=== PATIENT | female | born 1960 | race Caucasian/White ===

== ENCOUNTER → 2019-09-11 13:44 | Outpatient (CLI) | payer OTHER, SELFPAY ==
--- NOTE | 2019-09-11 13:50 | ECHOD_ITS ---
Reason For Study: ABN CHEST XRAY Procedure This was a 2D Doppler, Color Flow transthoracic echocardiogram. Exam performed in department. Left Ventricle Normal LV size. Left ventricular systolic function is normal. The estimated ejection fraction is 60 %. Stage 1 diastolic dysfunction. No regional wall motion abnormalities noted. Right Ventricle Normal RV size. Normal systolic function. Atria Normal left atrium. Normal right atrium. Mitral Valve Bileaflet diffuse mitral valve thickening. Mild (1+) eccentric mitral valve insufficiency. Tricuspid Valve Normal tricuspid valve. Mild (1+) tricuspid valve insufficiency. Pulmonary artery systolic pressure is 26 mmHg. Aortic Valve Trisinus/trileaflet aortic valve. Pulmonic Valve Normal pulmonic valve. Great Vessels Mildly dilated aortic root. The pulmonary artery is normal size. Inferior vena cava collapse with respiration. Pericardium/Pleural No pericardial effusion. MMode/2D Measurements & Calculations LVIDd: 4.3 cm IVSd: 0.91 cm Ao root diam: 3.7 cm LVIDs: 2.9 cm LVPWd: 0.84 cm RVDd: 3.1 cm FS: 33.0 % LAV(MOD-bp): 45.2 ml EDV(MOD-sp4): 82.9 ml EDV(MOD-sp2): 94.1 ml LAV(MOD-bp) Indexed: 28.6 ml/m2 ESV(MOD-sp4): 36.5 ml EF(MOD-sp2): 54.5 % LAV(MOD-sp2): 41.2 ml EF(MOD-sp4): 56.0 % LAV(MOD-sp4): 47.4 ml SV(MOD-sp4): 46.4 ml SV(MOD-sp2): 51.3 ml LA A4 area: 16.8 cm2 LA dimension(2D): 3.0 cm RA A4 area: 14.0 cm2 Time Measurements MV dec time: 0.22 sec Doppler Measurements & Calculations MV E max tay: 85.4 cm/sec Lat Peak E' Tay: 5.9 cm/sec Med Peak E' Tay: 6.8 cm/sec MV A max tay: 102.7 cm/sec E/E' lat: 14.5 E/E' med: 12.5 MV E/A: 0.83 Ao V2 max: 141.3 cm/sec LV V1 max: 119.3 cm/sec PA V2 max: 84.6 cm/sec Ao max P.0 mmHg LV V1 max P.7 mmHg TR max tay: 242.5 cm/sec TR max P.5 mmHg Interpretation Summary Normal LV size. Left ventricular systolic function is normal. The estimated ejection fraction is 60 %. Stage 1 diastolic dysfunction. Mildly dilated aortic root. Ordering Physician: Ravi Bee Referring Physician: Ravi Bee Performed By: Melissa Jeter, FRANCO, RVT
== END ==
PROVIDERS: PCP Nurse Practitioner Family; Referring Provider Nurse Practitioner Family; Visit Provider Nurse Practitioner Family
DX: R93.89 Abnormal findings on diagnostic imaging of other specified body structures (principal)
CPT/HCPCS: 93306

== ENCOUNTER 2020-06-03 05:29 | Day surgery (SDC) | payer OTHER, SELFPAY ==
--- NOTE | 2020-05-20 13:06 | EKG12_ITS ---
Test Reason : PREOP Blood Pressure : / mmHG Vent. Rate : 078 BPM Atrial Rate : 078 BPM P-R Int : 124 ms QRS Dur : 076 ms QT Int : 374 ms P-R-T Axes : 048 062 023 degrees QTc Int : 426 ms Normal sinus rhythm Left ventricular hypertrophy Nonspecific ST abnormality Abnormal ECG Confirmed by LAURA KAISER, NICHOLAS ([id number]), photo editor JOSE BATISTA ([id number]) on 05/20/2020 2:31:38 PM Referred By: Niles Conner Confirmed By:NICHOLAS SANCHZE MD
[2020-05-20 15:10] LABS: Hemoglobin 12.9 g/dL (12.0-15.0); Mean Corp Hgb Conc 30.7 g/dL (32-36); Mean Corpuscular Hgb 28.3 pg (27.0-32.0); Mean Corpuscular Volume 92.1 fL (81-99); Mean Platelet Vol. 10.2 fl (6.2-12.0); Platelet Count 405 K/mm3 (150-450); RBC Distribution Width CV 15.1 % (11.6-14.6); RBC Distribution Width SD 51.8 fl (35.1-43.9); Red Blood Count 4.56 M/mm3 (4.2-5.4); White Blood Count 7.4 K/mm3 (4.4-11.0)
[2020-05-20 15:49] LABS: Anion Gap 4 (5-15); BUN 15 mg/dL (7-18); BUN/Creat Ratio 20.4 RATIO (10-20); Calcium,Total 9.3 mg/dL (8.5-10.1); Chloride 104 mmol/L (98-107); Creatinine, Serum 0.74 mg/dL (0.55-1.02); EST Glomerular Filtration Rate 85 mL/min (>60); Est Glom Filt Rate - Afr Amer 103 mL/min (>60); Glucose 92 mg/dL (74-106); Potassium 3.8 mmol/L (3.5-5.1); Sodium Level 138 mmol/L (136-145)
[2020-05-20 15:56] LABS: AST(SGOT) 18 U/L (15-37); Alanine Aminotransfer ALT/SGPT 19 U/L (13-56); Albumin, Serum 3.2 g/dL (3.2-5.0); Alkaline Phosphatase 85 U/L (45-117); Globulin 4.7 g/dL (2.2-4.2); Magnesium 2.4 mg/dL (1.6-2.6); Protein, Total 7.9 g/dL (6.4-8.2)
[2020-05-20 16:13] LABS: International Normalized Ratio 0.9; Prothrombin Time (Protime)PT. 11.8 SECONDS (11.7-14.9)
[2020-05-20 16:14] LABS: Partial Thromboplast Time 25.9 Seconds (24.1-36.2)
[2020-06-03] VITALS (20 sets, daily range): BP systolic 112–155; BP diastolic 72–99; PULSE 58–82; RESP 14–16; TEMP 36.3–37.3; O2SAT 95–100; BMI 18.1
--- NOTE | 2020-06-03 | HIP_PTH ---
PATIENT: RENETTA DAMIAN LOC: [facility] [place] U#:[id number] AGE/SX: 59/F ROOM: RE06/03/[address]: Dr. Niles Conner MD : 1960 BED: DIS: 06/03/2020 SPEC #: [id number] RECD: 06/03/20 10:43 STATUS: DARLENE RENic #: [id number] ENRIQUE: 06/03/20 00:[address]: Niles Conner DEPT: SURGICAL PATHOLOGY RECD BY: Austin Adame ENTERED: 06/03/20 10:43 SP TYPE: TOTAL HIP OTHR DR: Ravi Bee, HEALTHCARE EDUCATOR-C Tissues: Hip, NOS Procedures: Decalcification bone/plaque Surgery Specimen Level IV HEADER OPERATION: ERAS, total hip replacement PRE-OP DIAGNOSIS: Right hip severe osteoarthritis TISSUE SUBMITTED: Right femoral head MICROSCOPIC DIAGNOSIS Bone and soft tissue of right hip, total hip resection: Mild synovial hyperplasia and associated mild chronic inflammation. Bone with severe degenerative joint disease. AM:pao 06/06/2020 MICROSCOPIC DESCRIPTION Slides are reviewed. GROSS DESCRIPTION Received is one container labeled with the patient's name and designated femoral head. The specimen consists of a brian femoral head (with portion of femoral neck). The femoral head measures 4.5 x 4.5 x 4.5 cm and portion of attached femoral neck measures up to 2 cm in length. Also present attached to the femoral head are pieces of soft tissue measuring in aggregate 4 x 4 x 0.6 cm. The articular surface displays prominent osteophyte formation, eburnation and bone erosion. Security Expert sections are submitted in two cassettes as follows: 1 - soft tissue, 2 - bone after decalcification. / SJ:pao 06/03/2020 TC:5 [facility]: [id number]
[2020-06-03] MEDS: Celecoxib 200 MG Capsule 400 MG PO (06:29)
[2020-06-03] MEDS: Scopolamine 1mg/72hr Patch 1 PATCH TD (06:30)
[2020-06-03] MEDS: Gabapentin 600 MG Tablet PO (06:30)
[2020-06-03] MEDS: Acetaminophen 500 MG Tablet 1000 MG PO ×2 (06:30→15:14)
[2020-06-03] MEDS: Lactated Ringers 1,000 ML 100 ML IV ×2 (06:33→11:25)
--- NOTE | 2020-06-03 07:12 | RAD_ITS ---
STUDY: X-RAY - PELVIS AND RIGHT HIP REASON FOR EXAM: Female, 59 years old. post op YOSSI -- in PACU TECHNIQUE: 2 views of the pelvis and hip. COMPARISON: None. FINDINGS: Status post right hip arthroplasty. Surgical hardware intact/well aligned. No acute complications. Moderate left hip osteoarthritis. Postoperative soft tissues with staple line. RAD/Hip Min 2 Views (Portable) IMPRESSION: Uncomplicated right hip arthroplasty Moderate left hip osteoarthritis Electronically Signed: Chinmay Dawson DO at 9:51 EDT Tel , Service support ,
[2020-06-03] MEDS: Cefazolin 2 GM in 0.9% Normal Saline 100 ML IV (07:32)
[2020-06-03 07:45] LABS: Bedside Glucose 59 mg/dL (70-110)
[2020-06-03] MEDS: dexAMETHasone 10 MG/ML Vial IV (07:47)
--- NOTE | 2020-06-03 08:46 | PCM.OP.PRO ---
Procedure Report Date of Procedure: 06/03/20 Preoperative diagnosis: [Right] hip primary osteoarthritis Postoperative diagnosis: Same Operation: [Right] total hip replacement surgery Surgeon: Dr. Niles Conner MD Knowledge Architect: JUAN Hernandez assistant construction superintendent Anesthesia: Spinal/LMA Anesthesiologist Dr. Cobos Complications: None EBL 200 Special medications: IV [Ancef], IV Tranexamic acid Indications for surgery : Patient is a [ 59]-year-old female with a long-standing history of [right] severe hip pain that has failed adequate nonoperative treatment. Due to persistent pain and disability, they decided to proceed with hip replacement surgery. Appropriate informed consent was obtained and signed. Appropriate medical workup was performed preoperatively and patient was deemed safe for surgery by the anesthesia department as well. clinical trial assistant, physician assistant construction superintendent, was utilized throughout the entire procedure. They were vital in helping with patient positioning, holding of retractors, exposing the tissues adequately for safe completion of the procedure including cutting of the bone, helping dust mill operator appropriate alignment and sizing of the components, implantation of the components, as well as wound closure, bandage application, and safe patient transfer. Without regional vice president surgical sales, physician assistant construction superintendent, surgical time would have been significantly increased, and surgical outcome would have been less optimal. Operative findings: Patient had severe arthritis of the involved hip joint. They underwent a small posterior approach to the hip. We utilized a size [6 press-fit Accolade 2 stem] 127 degree neck angle, a press fit acetabular component size 48 titanium cluster, Trident X3 polyethylene liner with a 36 mm inner diameter, a Biolox ceramic femoral head size [36] with a +5 neck length. This reproduced their anatomy nicely. Clinically good leg lengths were noted. Good hip stability through range of motion with no undue pistoning. Standard wound closure in layers, followed by svitlana, followed by Mepilex dressing Details of procedure: Patient was taken to the operating room and transferred to the operating table. Given appropriate anesthetic agent by that department. Patient was then rolled into a lateral decubitus position with the involved painful hip up in the air. Appropriate timeouts had been performed. Hip had been appropriately marked with my initials. Padded anterior and posterior position was utilized. Axillary roll placed. TIFFANI hose and SCDs on the nonoperative limb utilized throughout the procedure. Tranexamic acid and IV antibiotics given preoperatively. Operative lower extremity was prepped padded and draped in the usual orthopedic sterile fashion for the procedure. I injected the pain relieving solution in the standard sterile technique of the soft tissues of the hip carefully. Incision was made curving over the tip of the greater trochanter posteriorly. Full thickness skin flaps are raised down on the fascia eugenia. Fascia eugenia was opened in length with our incision. Charnley self-retaining hip retractor was carefully placed by the surgeon. Leg was appropriately rotated and held by the assistant construction superintendent. Retractor was used to lift the abductors anteriorly to visualize the piriformis tendon and external rotators. Area was infiltrated with pain relieving cocktail. Piriformis tendon and external rotators released off the greater trochanter with the Bovie. Tagging suture was placed in each of these separately. We then split the tissue superior to the piriformis tendon through capsule and onto the pelvis. Acetabular labrum was also divided. With traction and manipulation arthritic femoral head was dislocated from the acetabulum. Retractors were carefully placed around the femoral neck. Cutting guide was utilized to map out the proposed cut approximately 1 fingerbreadth above the lesser trochanter. This femoral neck cut was carried out with a saw. Arthritic femoral head removed and measured and inspected. Inferior acetabular retractor was placed by the surgeon, held by the assistant construction superintendent. Bone hook utilized to pull the proximal femur anteriorly. Labrum removed from about the acetabulum a long knife. Tissue removed from the depth of the acetabulum with the Bovie. Arthritic acetabulum was noted. We began reaming with the appropriate sized reamer based on the measurement of the femoral head. Reaming was done with 45? of abduction, 20? of anteversion, reproducing there anatomy. Reaming was done incrementally up to the appropriate size creating a smooth cylindrical acetabulum and was done down to healthy bone. Trial acetabular component 1 millimeters smaller than the largest reamer was utilized with the outrigger device. Appropriate abduction and anteversion confirmed as well as size and position of cup. We irrigated with bulb syringe saline. Appropriate acetabular opponent was opened and hammered into position with the outrigger device, with 45? of abduction and 20 degrees of anteversion. We could see through the hole in the cup it was adequately down onto the bone in the pelvis. Good stability was noted. Trial liner with a 10? garcía was appropriately positioned. Any anterior and/ or posterior osteophytes removed with an osteotome, rondure. Acetabular retractors removed. A proximal femoral elevator utilized. Held by the assistant construction superintendent. We used a sharp awl entering down inside the bone of the proximal femur. Utilized the rakesh cutting osteotome in the proximal lateral greater trochanteric region. The fragment removed. Broaching was then done from the smallest broach, upto the appropriate size. Good stability was confirmed. We then trialed the construct with a standard neck length and appropriate sized femoral head on 127? angle neck. We were happy with the construct. Good stability to flexion, rotation by the assistant construction superintendent. At this point trials removed. I now placed the appropriate polyethylene acetabular liner into a clean dry previously placed shell. This was hammered into position. Suction device was used to confirm its stability. We now exposed the proximal femur with appropriate retractors in place, held by the assistant construction superintendent, actual femoral stem was checked, opened, and then hammered into the proximal femur and seated down to a similar position as the trial had. We now again trialed appropriate neck length upon. It was then opened. Now impacted the appropriate sized femoral head, neck construct onto the clean dried trunion. Was noted to be stable. Hip was inspected, and joint was reduced for a final time. Good hip stability and leg lengths noted. This was then irrigated with saline and cleaned. Next the remainder of the pain relieving solution was injected carefully throughout the soft tissues of the hip joint. Closure was carried out with a combination of #1 Vicryl, running #2 strata fix in the fascia eugenia, followed by mid layer #1 Vicryl with #1 strata fix running. Next running 0 strata fix, followed by skin svitlana, Xeroform, Mepilex dressing. We placed TIFFANI hose and SCD on the operative leg. Patient awoken from the anesthetic and transferred back to room bed in recovery room in satisfactory condition. Patient will be admitted for pain management, PT, IV antibiotics, medication for DVT prevention. Patient planned to be an outpatient total hip replacement. Ancef 2 g IV was given preoperatively. Aspirin 81 mg twice a day will be used for DVT prevention This note was generated with [employer] software. It may contain incorrect words, spelling, and punctuation that were not noted in checking the note before signing.
[2020-06-03 09:30] LABS: Bedside Glucose 135 mg/dL (70-110)
--- NOTE | 2020-06-03 11:49 | SUR.PHASEI ---
UPDATE GIVEN TO CHARLEEN TO RELAY TO PATIENTS FAMILY
[2020-06-03] MEDS: Cefazolin 1 GM/50 ML BAG IV (15:14)
== END 2020-06-03 17:40 | disposition home or self-care (01) ==
LOC: SDC 05:33 → ACINP 05:35 → AC 05:43
PROVIDERS: Anesthesiology; PCP Nurse Practitioner Family; Referring Provider Orthopaedic Surgery; Visit Provider Orthopaedic Surgery
PROC: 0SR90JZ Replacement of Right Hip Joint with Synthetic Substitute, Open Approach (ICD-10-PCS; CPT 27130; principal; 2020-06-03 07:05)
DX: M16.11 Unilateral primary osteoarthritis, right hip (principal); I10 Essential (primary) hypertension; J44.9 Chronic obstructive pulmonary disease, unspecified; Z78.0 Asymptomatic menopausal state; Z85.828 Personal history of other malignant neoplasm of skin; Z79.899 Other long term (current) drug therapy; Z87.891 Personal history of nicotine dependence
CPT/HCPCS: 01214; 27130; 36415; 73502; 80048; 80076; 82962; 83735; 85027; 85610; 85730; 87081; 87426; 88305; 88311; 93005; 97162; C1776; C9803; J7120; J3475

== ENCOUNTER → 2020-12-20 15:19 | Outpatient (CLI) | payer OTHER, SELFPAY | PROVIDERS: PCP Nurse Practitioner Family; Visit Provider Otolaryngology | DX: H92.10 Otorrhea, unspecified ear (principal) | CPT/HCPCS: 87070; 87075; 87205 ==

== ENCOUNTER 2020-12-31 08:42 | Day surgery (SDC) | payer OTHER, SELFPAY ==
--- NOTE | 2020-12-31 08:50 | EKG12_ITS ---
Test Reason : PRE OP Blood Pressure : / mmHG Vent. Rate : 068 BPM Atrial Rate : 068 BPM P-R Int : 122 ms QRS Dur : 080 ms QT Int : 428 ms P-R-T Axes : 014 039 021 degrees QTc Int : 455 ms Normal sinus rhythm Normal ECG When compared with ECG of 20-MAY-2020 13:12, No significant change was found Confirmed by LAURA KAISER, NICHOLAS ([id number]), scientific publications editor HUBER OLIVEIRA ([id number]) on 01/03/2021 11:54:35 AM Referred By: Homero Turk Confirmed By:NICHOLAS SANCHEZ MD
[2020-12-31] MEDS: Lactated Ringers 1,000 ML 15 ML IV ×2 (08:55→13:02)
[2020-12-31 09:13] VITALS: BP 135/73; PULSE 58; RESP 16; TEMP 36.8; O2SAT 95; BMI 18.1
[2020-12-31 09:39] LABS: Anion Gap 6 (5-15); BUN 18 mg/dL (7-18); BUN/Creat Ratio 25.6 RATIO (10-20); Calcium,Total 8.8 mg/dL (8.5-10.1); Chloride 106 mmol/L (98-107); EST Glomerular Filtration Rate 90 mL/min (>60); Est Glom Filt Rate - Afr Amer 109 mL/min (>60); Estimated Creatinine Clearance 67.95 ml/min; Glucose 102 mg/dL (74-106); Potassium 3.9 mmol/L (3.5-5.1); Sodium Level 139 mmol/L (136-145)
[2020-12-31] MEDS: Lidocaine 1% /Epi 1:100 (20ml) 20 ML Vial (11:45)
[2020-12-31] MEDS: Neomycin/Bacitracin/Polymyxin Ointment 1 APPLIC (12:25)
--- NOTE | 2020-12-31 12:27 | PCM.DC ---
Discharge Instructions Diet Discharge Diet: No restrictions Activity Discharge Activity: Return to Normal Activity Dressing / Incision Additional Dressing/Incision Instructions:: keep water out of left ear. neosporin on tragus twice daily. take oral antibiotics (already has them at home) Follow Up Care Please Follow Up With: Homero Turk MD When: 1 month Test Results: Test results from this visit will be discussed in further detail at your follow-up appointment, if applicable. Discharge Plan Admission Attending Provider: Homero Turk Primary Care Provider: Ravi Bee NP Discharge Orders/Prescriptions Prescriptions: No Action acetaminophen 500 MG tablet 500 - 1,000 mg PO Q6H PRN PRN (Reason: Pain 1-10 Or Fever) RF: 0 lisinopril 10 MG tablet 10 mg PO BREAKFAST RF: 0 Disposition Discharge Orders: Discharge Patient (Routine); Ordered 12/31/20 Ordered By: Dr. Homero Turk
--- NOTE | 2020-12-31 12:28 | PCM.OPRPT ---
Problems Associated Problem List Diagnoses (1) Perforation of tympanic membrane: Report of Operation Date of Procedure: 12/31/20 Pre-Operative Diagnosis: central perforation, left tympanic membrane Post-Operative Diagnosis: central perforation, left tympanic membrane Surgery/Procedure Performed:: 1. butterfly cartilage tympanoplasty, left ear 2. tragal cartilage graft harvest, left ear Surgeon: Homero Turk Type of Anesthesia: General Description of Procedure: on the day of the procedure, after appropriate informed consent was obtained, the patient was brought to the operating room and placed in supine position on the operating table. she was placed under general anesthesia by the anesthesiologist. the left ear was prepped and draped in sterile fashion. the left tragus was injected with lidocaine/epinephrine. a 5mm incision was made in the posterior tragus with a 15 blade. a 5mm tragal cartilage graft was harvested using an iris scissor. it was scalloped with a 15 blade to create a butterfly cartilage tympanoplasty using the microscope. the binocular operating microscope was used and a speculum was placed in the left ear. the 4mm anterior perforation was seen; the rim was postage stamped. the graft was snapped into place using an alligator and ibarra. floxin-soaked gelfoam was used lateral to the graft and bacitracin was placed in the canal. the tragal incision was closed with 4-0 chromic. she was awoken from anesthesia and transferred to the PACU in stable condition.
[2020-12-31 12:30] VITALS: BP 122/80; BP 135/73; PULSE 71; RESP 16; TEMP 36.2; O2SAT 97
[2020-12-31 12:45] VITALS: BP 115/77; BP 135/73; PULSE 73; RESP 16; O2SAT 94
[2020-12-31 13:00] VITALS: BP 108/76; BP 135/73; PULSE 80; RESP 16; TEMP 36.6; O2SAT 96
[2020-12-31 13:32] VITALS: BP 135/73
== END 2020-12-31 13:39 | disposition home or self-care (01) ==
LOC: SDC 08:43 → AC 08:44
PROVIDERS: PCP Nurse Practitioner Family; Referring Provider Otolaryngology; Visit Provider Otolaryngology
PROC: (CPT 69631; principal; 2020-12-31 09:45)
DX: H72.02 Central perforation of tympanic membrane, left ear (principal); H92.12 Otorrhea, left ear; I10 Essential (primary) hypertension; G43.909 Migraine, unspecified, not intractable, without status migrainosus; Z79.899 Other long term (current) drug therapy
CPT/HCPCS: 00120; 69631; 80048; 93005; J7120; J2405